=== PATIENT | male | born 1985 | race Two or more races ===

== ENCOUNTER 2019-04-05 02:49 | Emergency (ER) | payer BC ==
[~2019-04-05] VITALS: Ht 172.7 cm; Wt 68.0 kg
[2019-04-05 03:00] VITALS: BP 120/84
--- NOTE | 2019-04-05 03:05 | Emergency Room Report ---
History of Present Illness General Chief Complaint: Alcohol Intoxication Source: Patient Present Illness HPI Is a 34-year-old male with no past medical history. He presents with chief complaint of alcohol intoxication. He said is been drinking alcohol tonight. Also was taking ketamine. He was nausea and vomiting. Girlfriend brought him into be evaluated. Denies any head trauma. No suicidal thoughts homicidal thought. Denies any other complaint. Allergies: Coded Allergies: No Known Allergies (Unverified , 04/05/19) Patient History Past Medical History: see triage record, old chart reviewed Past Surgical History: none Pertinent Family History: none Social History: Reports: alcohol use, drug use Immunizations: other Reviewed Nursing Documentation: PMH: Agreed; PSxH: Agreed Nursing Documentation-PMH Past Medical History: No Stated History Review of Systems Eye: Denies: eye pain, blurred vision ENT: Denies: ear pain, nose congestion, throat swelling Respiratory: Denies: cough, shortness of breath Cardiovascular: Denies: chest pain, palpitations Gastrointestinal: Reports: nausea, vomiting; Denies: abdominal pain, diarrhea Musculoskeletal: Denies: back pain, joint pain Skin: Denies: rash Neurological: Denies: headache, numbness Endocrine: Denies: increased thirst, increased urine Hematologic/Lymphatic: Denies: easy bruising All Other Systems: negative except mentioned in HPI Physical Exam Vital Signs Date Time Temp Pulse Resp B/P (MAP) Pulse Ox O2 Delivery O2 Flow Rate FiO2 04/05/19 02:57 99.0 103 18 119/74 (89) 96 Room Air Vitals normal Sp02 EP Interpretation: reviewed, normal General Appearance: well appearing, no apparent distress, alert, other - intoxicated Head: normocephalic, atraumatic Eyes: bilateral eye PERRL, bilateral eye EOMI ENT: hearing grossly normal, normal pharynx Neck: full range of motion, supple, no meningismus Respiratory: chest non-tender, lungs clear, normal breath sounds Cardiovascular #1: regular rate, rhythm, no murmur Gastrointestinal: normal bowel sounds, non tender, no mass, no organomegaly, no bruit, non-distended Musculoskeletal: back normal, normal range of motion, gait/station normal Psychiatric: mood/affect normal Medical Decision Making Diagnostic Impression: Primary Impression: Acute alcoholic intoxication Qualified Codes: F10.920 - Alcohol use, unspecified with intoxication, uncomplicated Additional Impressions: Substance abuse Gastritis Qualified Codes: K29.01 - Acute gastritis with bleeding ER Course Patient presents with alcohol intoxication and substance abuse. He does have some vomiting and noticed some coffee-ground emesis staining on his mouth. Girlfriend said that he has an issue with gastritis and reflux. 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 He is no longer vomiting here. Vital signs are stable. Will discharge home once he is more clinically sober. He has not given a urine sample but he admits to using marijuana alcohol and ketamine. Last Vital Signs Date Time Temp Pulse Resp B/P (MAP) Pulse Ox O2 Delivery O2 Flow Rate FiO2 04/05/19 02:57 99.0 103 18 119/74 (89) 96 Room Air Status: improved Disposition: HOME, SELF-CARE Condition: Stable Scripts Omeprazole (OMEPRAZOLE) 40 Mg Capsule. 40 MG ORAL TWICE A DAY, #30 CAP Prov: Justen Buchanan MD 04/05/19 Patient Instructions: Alcohol Intoxication, [id number] Additional Instructions: Abstain from drugs and alcohol. Follow-up with your doctor in 7 days. You may need a referral to see a clinical nurse occupational medicine for endoscopy. Return if worse. Justen Buchanan MD Apr 05, 2019 03:05
[2019-04-05] MEDS ORDERED: Pantoprazole Inj IVP ONE (03:30)
[2019-04-05] MEDS ORDERED: Pantoprazole Inj ONE (03:30)
[2019-04-05 03:37] LABS: BASOPHILS % (AUTO) 1.7 % (0.0-2.0); EOSINOPHILS % (AUTO) 1.4 % (0.0-3.0); HEMOGLOBIN 14.4 G/DL (14.2-18.0); LYMPHOCYTES % (AUTO) 35.3 % (20.0-45.0); MEAN CORPUSCULAR VOLUME 92 FL (80-99); MONOCYTES % (AUTO) 7.2 % (1.0-10.0); NEUTROPHILS % (AUTO) 54.5 % (45.0-75.0); PLATELET COUNT 205 K/UL (150-450); RED BLOOD COUNT 4.57 M/UL (4.70-6.10); RED CELL DISTRIBUTION WIDTH 11.9 % (11.6-14.8); WHITE BLOOD COUNT 16.6 K/UL (4.8-10.8)
[2019-04-05 03:51] LABS: ANION GAP 14 mmol/L (5-15); BLOOD UREA NITROGEN 14 mg/dL (7-18); CALCIUM 8.7 MG/DL (8.5-10.1); CARBON DIOXIDE 24 MMOL/L (21-32); CHLORIDE 104 MMOL/L (98-107); CREATININE 1.1 MG/DL (0.55-1.30); POTASSIUM 3.4 MMOL/L (3.5-5.1); SODIUM 142 MMOL/L (136-145)
[2019-04-05 03:56] LABS: ALANINE AMINOTRANSFERASE 28 U/L (12-78); ALBUMIN 4.3 G/DL (3.4-5.0); ALBUMIN/GLOBULIN RATIO 1.4 (1.0-2.7); ALKALINE PHOSPHATASE 63 U/L (46-116); ASPARTATE AMINO TRANSFERASE 18 U/L (15-37); BILIRUBIN,TOTAL 0.3 MG/DL (0.2-1.0)
[2019-04-05] MEDS ORDERED: OMEPRAZOLE40 M1 ORAL (04:15)
[2019-04-05 04:56] VITALS: BP 102/68
[2019-04-05 07:05] VITALS: BP 100/68
== END 2019-04-05 07:05 | disposition home or self-care (01) ==
LOC: EMR 03:02
DX: F10.129 Alcohol abuse with intoxication, unspecified (principal); K29.01 Acute gastritis with bleeding; F19.10 Other psychoactive substance abuse, uncomplicated
CPT/HCPCS: 80053; 85025; 96361; 96374; 96375; 99284; C9113; G0480; J2405; J7030